=== PATIENT | female | born 2000 | race African-American/Black ===

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

== ENCOUNTER 2020-02-19 00:50 | Emergency (ER) | payer OTHER ==
[~2020-02-19] VITALS: Ht 154.9 cm; Wt 54.0 kg
[2020-02-19 01:33] LABS: BASOPHILS % 0.1 % (0.0-2.0); EOSINOPHILS % 1.6 % (0.0-5.0); HEMOGLOBIN. 11.5 g/dL (12.0-16.0); LYMPHOCYTES % 17.5 % (20.0-50.0); MEAN CORPUSCULAR VOLUME 82.5 fL (81.0-99.0); MEAN PLATELET VOLUME 8.7 fl (7.4-10.4); MONOCYTES % 8.3 % (2.0-8.0); NEUTROPHILS % 72.5 % (40.0-76.0); PLATELET 217 x1000/uL (130-400); RED BLOOD CELL COUNT 4.25 mill/uL (4.2-5.4); RED CELL DISTRIBUTION WIDTH 14.5 % (11.6-14.6)
[2020-02-19 04:12] VITALS: BP 122/78
== END 2020-02-19 04:25 | disposition home or self-care (01) ==
LOC: ER 00:50
DX: O20.9 Hemorrhage in early pregnancy, unspecified (principal); I49.9 Cardiac arrhythmia, unspecified; Z3A.13 13 weeks gestation of pregnancy
CPT/HCPCS: 36415; 76801; 81025; 84702; 85025; 86850; 86900; 93005; 99285

== ENCOUNTER 2020-06-12 00:31 | Inpatient (IN) | payer OTHER ==
[~2020-06-12] VITALS: Ht 152.4 cm; Wt 75.7 kg
[2020-06-12] MEDS ORDERED: LACTATED RINGERS 1,000 ML IV SCH (01:15)
[2020-06-12] MEDS: TERBUTALINE SULFATE 1MG/ML VIAL SUBCUT PRN ×5 (01:26→02:56)
[2020-06-12] MEDS ORDERED: MAGNESIUM 2 G PREMIX 50 ML IV SCH (01:30)
[2020-06-12] MEDS ORDERED: BETAMETHASONE ACET/BETAMET 30 MG/5 ML VIAL IM NR (01:30)
[2020-06-12] MEDS ORDERED: CEFAZOLIN 2,000 MG in DEXT 5% WATER 100 ML IV SCH (02:00)
[2020-06-12 02:05] LABS: BASOPHILS % 0.2 % (0.0-2.0); EOSINOPHILS % 0.3 % (0.0-5.0); HEMATOCRIT. 33.9 % (36.0-48.0); HEMOGLOBIN. 11.2 g/dL (12.0-16.0); LYMPHOCYTES % 7.3 % (20.0-50.0); MEAN CORPUSCULAR HEMOGLOBIN 26.8 pg (28.0-32.0); MEAN CORPUSCULAR VOLUME 81.2 fL (81.0-99.0); MEAN PLATELET VOLUME 9.1 fl (7.4-10.4); NEUTROPHILS % 83.2 % (40.0-76.0); PLATELET 204 x1000/uL (130-400); RED BLOOD CELL COUNT 4.17 mill/uL (4.2-5.4); RED CELL DISTRIBUTION WIDTH 13.7 % (11.6-14.6)
[2020-06-12 02:14] LABS: CLARITY URINE TURBID (CLEAR); COLOR URINE YELLOW (YELLOW); KETONES URINE NEGATIVE (NEGATIVE); LEUKOCYTE ESTERASE URINE 2+ (NEGATIVE); NITRITE URINE NEGATIVE (NEGATIVE); OCCULT BLOOD URINE NEGATIVE (NEGATIVE); PROTEIN URINE NEGATIVE (NEGATIVE)
[2020-06-12 02:14] LABS: INR 0.9; PROTHROMBIN TIME 9.8 sec (9.6-11.0)
[2020-06-12] MEDS ORDERED: MAGNESIUM 4 G PREMIX 100 ML IV NR (02:15)
[2020-06-12 02:27] LABS: *AMPHETAMINES SCREEN URINE NEGATIVE (NEGATIVE); *BARBITURATES SCREEN URINE NEGATIVE (NEGATIVE)
[2020-06-12 02:28] LABS: *BENZODIAZEPINES SCREEN URINE NEGATIVE (NEGATIVE); *COCAINE SCREEN URINE NEGATIVE (NEGATIVE); METHADONE URINE SCREEN NEGATIVE (NEGATIVE); OPIATES URINE SCREEN NEGATIVE (NEGATIVE); PHENCYCLIDINE URINE SCREEN NEGATIVE (NEGATIVE)
[2020-06-12] MEDS ORDERED: TERBUTALINE SULFATE 1MG/ML VIAL SUBCUT PRN (03:00)
[2020-06-12] MEDS ORDERED: MAGNESIUM 20 G PREMIX (L & D) 500 ML IV SCH (03:00)
[2020-06-12 03:02] LABS: CANNABINOID URINE SCREEN PRESUMTIVE POSITIVE (NEGATIVE)
[2020-06-12] MEDS ORDERED: OXYTOCIN 10 UNITS/ML 1ML ONE (04:00)
[2020-06-12] MEDS ORDERED: METHYLERGONOVINE MALEATE 0.2 MG/ML IM PRN (04:00)
[2020-06-12] MEDS ORDERED: LIDOCAINE HCL 1% 20ML VIAL (Pyxis) INJ INFIL SCH (04:00)
[2020-06-12] MEDS ORDERED: NALOXONE HCL 0.4 MG/ML 1ML VIAL IM PRN (04:00)
[2020-06-12] MEDS: MINERAL OIL 30ML BOTTLE PO NR ×2 (04:23→04:25)
[2020-06-12] MEDS ORDERED: LANOLIN OINT 7GM TUBE TOP PRN (04:30)
[2020-06-12 04:35] LABS: HEPATITIS B SURFACE ANTIGEN NEGATIVE
[2020-06-12] MEDS ORDERED: DEXT 5%/LR + PITOCIN 20UNITS/L 1,000 ML IV SCH (05:00)
[2020-06-12 07:55] VITALS: BP 125/65
[2020-06-12] MEDS: PRENATAL VIT/FE FUMARATE/FA TABLET PO SCH (09:14)
[2020-06-12] MEDS: ACETAMINOPHEN 500MG TABLET PO PRN ×2 (09:14→16:06)
[2020-06-12 16:20] VITALS: BP 101/52
[2020-06-12 17:30] LABS: HEMATOCRIT. 36.4 % (36.0-48.0); HEMOGLOBIN. 11.5 g/dL (12.0-16.0); MEAN CORPUSCULAR HEMOGLOBIN 25.9 pg (28.0-32.0); MEAN PLATELET VOLUME 9.3 fl (7.4-10.4); PLATELET 235 x1000/uL (130-400); RED BLOOD CELL COUNT 4.44 mill/uL (4.2-5.4); RED CELL DISTRIBUTION WIDTH 14.2 % (11.6-14.6)
[2020-06-12 17:55] LABS: PLATELET ESTIMATE NORMAL
[2020-06-12] MEDS: DOCUSATE SODIUM 100MG CAPSULE PO SCH (21:00)
[2020-06-12 22:01] VITALS: BP 104/59
[2020-06-13 04:30] VITALS: BP 95/57
[2020-06-13 08:00] VITALS: BP 103/59
[2020-06-13] MEDS: PRENATAL VIT/FE FUMARATE/FA TABLET PO SCH (08:48)
[2020-06-13 09:30] LABS: HEMOGLOBIN. 11.6 g/dL (12.0-16.0); MEAN CORPUSCULAR VOLUME 82.5 fL (81.0-99.0); MEAN PLATELET VOLUME 9.2 fl (7.4-10.4); PLATELET 242 x1000/uL (130-400); RED BLOOD CELL COUNT 4.48 mill/uL (4.2-5.4); RED CELL DISTRIBUTION WIDTH 14.5 % (11.6-14.6)
[2020-06-13 10:16] LABS: PLATELET ESTIMATE NORMAL
[2020-06-13 12:10] LABS: CLARITY URINE CLEAR (CLEAR); COLOR URINE YELLOW (YELLOW); KETONES URINE NEGATIVE (NEGATIVE); LEUKOCYTE ESTERASE URINE NEGATIVE (NEGATIVE); NITRITE URINE NEGATIVE (NEGATIVE); OCCULT BLOOD URINE NEGATIVE (NEGATIVE); PROTEIN URINE NEGATIVE (NEGATIVE); SPECIFIC GRAVITY URINE 1.019 (1.005-1.030)
[2020-06-13] MEDS: AMOXICILLIN 500 MG CAPSULE PO SCH ×2 (15:18→20:38)
[2020-06-13 16:30] VITALS: BP 98/54
[2020-06-13 20:00] VITALS: BP 122/70
[2020-06-13] MEDS: ACETAMINOPHEN 500MG TABLET PO PRN (20:39)
[2020-06-13] MEDS: DOCUSATE SODIUM 100MG CAPSULE PO SCH (20:39)
[2020-06-14 04:05] VITALS: BP 119/69
[2020-06-14 06:33] LABS: BASOPHILS % 0.2 % (0.0-2.0); EOSINOPHILS % 0.5 % (0.0-5.0); HEMATOCRIT. 35.9 % (36.0-48.0); HEMOGLOBIN. 11.9 g/dL (12.0-16.0); LYMPHOCYTES % 12.6 % (20.0-50.0); MEAN CORPUSCULAR HEMOGLOBIN 26.8 pg (28.0-32.0); MEAN CORPUSCULAR VOLUME 81.1 fL (81.0-99.0); MONOCYTES % 5.7 % (2.0-8.0); PLATELET 243 x1000/uL (130-400); RED BLOOD CELL COUNT 4.42 mill/uL (4.2-5.4)
[2020-06-14 08:00] VITALS: BP 115/62
[2020-06-14] MEDS: ACETAMINOPHEN 500MG TABLET PO PRN (08:33)
[2020-06-14] MEDS: PRENATAL VIT/FE FUMARATE/FA TABLET PO SCH (08:33)
[2020-06-14] MEDS: AMOXICILLIN 500 MG CAPSULE PO SCH (09:18)
[2020-06-14 16:00] VITALS: BP 127/71
[2020-06-18 04:11] LABS: CANNABINOID CONFIRMATION URINE Positive (.)
== END 2020-06-14 18:52 | disposition home or self-care (01) | DRG 805 ==
LOC: INTOOBSV 00:31 → 8 EST LDRP 00:31 → OBSVTOIN 00:31 → 8EST 05:34
PROVIDERS: ADMIT Obstetrics & Gynecology Obstetrics; ATTEND Obstetrics & Gynecology Obstetrics
PROC: 10E0XZZ Delivery of Products of Conception, External Approach (ICD-10-PCS; principal; 2020-06-12)
DX: O62.3 Precipitate labor (principal); O60.14X0 Preterm labor third trimester with preterm delivery third trimester, not applicable or unspecified; Z37.0 Single live birth; O77.0 Labor and delivery complicated by meconium in amniotic fluid; Z20.822 Contact with and (suspected) exposure to COVID-19; Z3A.30 30 weeks gestation of pregnancy
CPT/HCPCS: 36415; 71046; 80305; 80349; 81003; 85025; 86592; 86703; 86762; 86850; 86900; 87340; 88307; 99281; G0378; J0690; J0702; J2210; J3105; J3475; J7060; U0003